=== PATIENT | female | born 1980 | race Caucasian/White ===

== ENCOUNTER 2016-06-06 07:21 | Emergency (ER) | payer OTHER ==
[2016-06-06 07:35] VITALS: BP 138/93
--- NOTE | 2016-06-06 07:49 | ERNOTE ---
ENT HPI Date of Service: 06/06/16 Time Seen by Provider: 06/06/16 07:44 Source: patient Exam Limitations: no limitations - Immun/Allergies/Home Medications Immunizations: IMMUNIZATION HX Immunizations Up to Date Yes History of Influenza Vaccine Yes Hx Pneumococcal Vaccination No Allergies/Adverse Reactions: Allergies Allergy/AdvReac Type Severity Reaction Status Date / Time No Known Allergies Allergy Verified 06/06/16 07:35 Home Medications: HOME MEDICATIONS Sumatriptan Succinate [Imitrex] 100 mg PO DAILY PRN 06/12/13 [Last Taken Unknown ] Ibuprofen 200 PO PRN PRN 06/15/14 [Last Taken Unknown] Polymyxin B Sulf/Trimethoprim [Polytrim Ophthalmic Solution] 2 drop EACHEYE TID #10 ml 06/06/16 [Last Taken Unknown] - History of Present Illness Narrative: pt complains of left eye feeling red, and irritated for 24 hours. She states that she feels there is something in it. she usually wears contacts for weeks at a time without taking them out. Yesterday when she took her contacts out she felt it "scratch my eyeball" Denies fevers or chills, denies runny nose. Admits to tearing from left eye Review of Systems - Review of Systems Constitutional: Present: no symptoms reported EYE: Present: see HPI ENT: Present: no symptoms reported Respiratory: Present: no symptoms reported Cardiology: Present: no symptoms reported - Patient's Past Medical History Patient History - Medical: Migraines Patient History - Cardiac/Respiratory: No pertinent hx Patient History - Cancer: No Hx of Cancer Patient History - Surgical Procedures: Other Patient History - Other: None LMP (females 10-50): 3 weeks - Social History Living Situations: home Abuse History: No History of abuse Psych History: No pertinent hx Smoking Status: Current some day smoker Alcohol Use: occasionally Drug Use: none - Immunizations Immunizations Up to Date: Yes Hx Pneumococcal Vaccination: No History of Influenza Vaccine: Yes Physical Exam - Physical Exam General Appearance: Present: wd/wn, alert, no apparent distress Eye Exam: Sclera injection: left - left eye has injected conjunctiva. Using dye and Wood's lamp no abrasions or foreign bodies were noted, eyelid inversion is negative for FB, Eye drainage: left - clear lacrimation Ears, Nose, Throat: Present: normal ENT inspection ED Progress - Vital Signs Patient's Vital Signs:: I have reviewed the patient's vital signs. Vital Signs: Vital Signs 06/06/16 07:30 Temperature 36.8 C Pulse Rate 73 Respiratory 14 Rate Blood Pressure 138/93 O2 Sat by Pulse 98 Oximetry - Progress/Reassessment Chief Complaint: Eye Injury/Trauma Plan - Plan Plan: I believe this patient has left sided conjunctivitis and will be treated as such Departure Clinical Impression: Conjunctivitis Qualifiers: Conjunctivitis type: acute Acute conjunctivitis type: unspecified Laterality: left Qualified Code(s): H10.32 - Unspecified acute conjunctivitis, left eye - Departure Disposition: Home self-care Condition: Good Instructions: Bacterial Conjunctivitis, [id number] Referrals: Irene Tran CNP [Primary Care Provider] - Prescriptions: Polymyxin B Sulf/Trimethoprim [Polytrim Ophthalmic Solution] 2 drop EACHEYE TID #10 ml
== END 2016-06-06 07:57 | disposition home or self-care (01) ==
LOC: ER 07:21
DX: H10.32 Unspecified acute conjunctivitis, left eye (principal); F17.210 Nicotine dependence, cigarettes, uncomplicated